=== PATIENT | female | born 1965 | race Caucasian/White ===

== ENCOUNTER 2022-04-16 21:54 | Emergency (ER) | payer OTHER ==
[~2022-04-16] VITALS: Ht 160 cm; Wt 65.8 kg
[2022-04-16 21:59] VITALS: BP 140/73
--- NOTE | 2022-04-16 23:18 | NUR ---
Dr. Maria examining patient.
[2022-04-16 23:21] VITALS: BP 132/73
--- NOTE | 2022-04-16 23:21 | NUR ---
Patient D/C to custody.
== END 2022-04-16 23:21 ==
LOC: MED 21:54
DX: Z02.89 Encounter for other administrative examinations (principal); V89.2XXA Person injured in unspecified motor-vehicle accident, traffic, initial encounter; Y93.89 Activity, other specified; Y92.410 Unspecified street and highway as the place of occurrence of the external cause; Y99.8 Other external cause status
CPT/HCPCS: 99283